=== PATIENT | male | born 1940 | race Caucasian/White ===

== ENCOUNTER 2016-10-02 19:56 | Emergency (ER) | payer OTHER, MEDICARE ==
[~2016-10-02] VITALS: Ht 175.3 cm; Wt 90.7 kg
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
[2016-10-02] MEDS ORDERED: ATORVASTATIN CA10 M1 PO (20:15)
[2016-10-02] MEDS ORDERED: NEXIUM40 M1 PO (20:15)
[2016-10-02] MEDS ORDERED: TAMSULOSIN HCL0.4 M1 PO (20:16)
[2016-10-02] MEDS ORDERED: ASPIRIN EC81 M1 PO (20:16)
[2016-10-02] MEDS ORDERED: VOLTAREN100 GM TOP (20:18)
--- NOTE | 2016-10-02 20:34 | RADIOLOGY REPORT ---
EXAMINATION: PORTABLE CHEST 1 VIEW CLINICAL INFORMATION: FALL, HEAD INJURY, +loc. COMPARISON: No recent pertinent prior studies are available for comparison. TECHNIQUE: Portable frontal view of the chest was obtained. FINDINGS: The lungs are well expanded. No focal infiltrate, effusion, edema, or pneumothorax. Cardiac and mediastinal silhouettes are within normal limits for size. Hiatal hernia is noted. Mild degenerative changes in the right shoulder and spine. No acute bony abnormality seen. IMPRESSION: Moderate-sized hiatal hernia. No acute airspace disease.
[2016-10-02 20:52] LABS: ABSOLUTE BASOPHIL COUNT 0 /CUMM (0.0-0.2); ABSOLUTE EOSINOPHIL COUNT 0.1 /CUMM (0.0-0.7); ABSOLUTE GRANULOCYTE CT 9.1 /CUMM (1.4-6.5); ABSOLUTE LYMPH COUNT 0.9 /CUMM (1.2-3.4); ABSOLUTE MONOCYTE COUNT 0.5 /CUMM (0.10-0.60); BASOPHIL % 0.1 % (0.0-2.0); HEMATOCRIT 42.5 % (42-52); MEAN CORPUSCULAR HGB 29.5 PG (27.0-31.0); MEAN CORPUSCULAR VOLUME 89.2 FL (80.0-94.0); MEAN PLATELET VOLUME 8.6 FL (7.4-10.4); PLATELET COUNT 198 /CUMM (130-400); RBC DISTRIBUTION WIDTH 14.5 % (11.5-14.5); RED BLOOD CELL CT 4.76 /CUMM (4.70-6.10); WHITE BLOOD CELL COUNT 10.6 /CUMM (4.8-10.8)
[2016-10-02 21:01] LABS: GRANULOCYTE % 86.4 % (42.2-75.2)
[2016-10-02 21:07] LABS: PT 11.4 SEC (9.4-12.5); PTT 30 SEC (25-37)
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
[2016-10-02 23:34] VITALS: BP 160/91
== END 2016-10-02 23:46 ==
LOC: ERH 19:56
PROVIDERS: Pediatrics
DX: S06.0X9A Concussion with loss of consciousness of unspecified duration, initial encounter (principal); S00.03XA Contusion of scalp, initial encounter; S01.01XA Laceration without foreign body of scalp, initial encounter; Y09 Assault by unspecified means; R41.0 Disorientation, unspecified; Z79.82 Long term (current) use of aspirin
CPT/HCPCS: 90471; 90714; 93005; 93010; G0480

== ENCOUNTER 2016-10-10 11:08 | Emergency (ER) | payer OTHER, MEDICARE ==
[~2016-10-10] VITALS: Ht 175.3 cm; Wt 93.0 kg
[~2016-10-10 11:08] MED LIST: ASPIRIN EC81 M1 PO; ATORVASTATIN CA10 M1 PO; NEXIUM40 M1 PO; TAMSULOSIN HCL0.4 M1 PO; VOLTAREN100 GM TOP
[2016-10-10 11:16] VITALS: BP 150/65
--- NOTE | 2016-10-10 11:43 | ED ANIMAL BITE/WOUND CHECK ---
History of Present Illness General Chief Complaint: Suture Removal/Wound Recheck Stated Complaint: STAPLE REMOVAL Source: patient Exam Limitations: no limitations Vital Signs & Intake/Output Vital Signs & Intake/Output Vital Signs Date Time Temp Pulse Resp B/P Pulse O2 O2 Flow FiO2 Ox Delivery Rate 10/10 1116 97.3 99 20 150/65 96 Room Air Allergies Coded Allergies: Opioids - Morphine Analogues (FEELS LIKE BUGS CRAWLING ALL OVER 10/02/16) Opioids-Meperidine and Related (FEELS LIKE BUGS CRAWLING ALL OVER 10/02/16) Opioids-Methadone and Related (FEELS LIKE BUGS CRAWLING ALL OVER SKIN 10/02/16) Reconcile Medications Aspirin (Ecotrin*) 81 MG TABLET.DR 1 TAB PO DAILY BLOOD THINNER (Reported) Atorvastatin Calcium 10 MG TABLET 1 TAB PO DAILY CHOLESTEROL (Reported) Diclofenac Sodium (Voltaren) 1 % GEL..GRAM. 1 GM TOP PRN SHOULDERS AND ELBOWS (Reported) apply to affected area(s) Esomeprazole (Nexium) 40 MG CAPSULE.DR 1 CAP PO DAILY GI (Reported) Tamsulosin HCl 0.4 MG CAP.ER.24H 1 CAP PO DAILY PROSTATE (Reported) Triage Note: PT TO ED FOR STAPLE REMOVAL TO TOP OF HEAD. 4 KAREEM PLACED LAST MONDAY. NO S/S INFECTION. DENIES PAIN. Triage Nurses Notes Reviewed? yes Onset: Abrupt Duration: day(s):, constant Timing: recent history Injury Environment: home HPI: 76-year-old male comes into emergency room for staple removal. No redness. No swelling. No discharge. No pain. Denies any other associated symptoms. (LALO GUZMAN) Past History Travel History Traveled to [place] past 21 day No Medical History Any Pertinent Medical History? see below for history Cardiovascular: hyperlipidemia Gastrointestinal: GERD Tetanus Vaccine: 10/02/16 Surgical History Surgical History: non-contributory Psychosocial History What is your primary language Greek Tobacco Use: Never used ETOH Use: denies use Illicit Drug Use: denies illicit drug use Family History Hx Contributory? No (LALO GUZMAN) Review of Systems Review of Systems Constitutional: Reports: no symptoms. EENTM: Reports: no symptoms. Respiratory: Reports: no symptoms. Cardiovascular: Reports: no symptoms. GI: Reports: no symptoms. Genitourinary: Reports: no symptoms. Musculoskeletal: Reports: no symptoms. Skin: Reports: see HPI. Neurological/Psychological: Reports: no symptoms. Hematologic/Endocrine: Reports: no symptoms. Immunologic/Allergic: Reports: no symptoms. All Other Systems: Reviewed and Negative (LALO GUZMAN) Physical Exam Physical Exam General Appearance: well developed/nourished Head: 4 kareem, no redness, no discharge Eyes: Bilateral: normal appearance. Ears, Nose, Throat: normal ENT inspection, hearing grossly normal Neck: normal inspection Respiratory: no respiratory distress Back: normal inspection Extremities: normal range of motion Neurologic/Psych: awake, alert, oriented x 3, normal mood/affect Skin: intact, normal color, warm/dry Lymphatic: no anterior cervical talib (LALO GUZMAN) Progress Differential Diagnosis: abscess, cellulitis, joint infection, tenosysnovitis Plan of Care: 10/10/2016 12:09:47 PM All kareem removed. Patient clinically looks well. (LALO GUZMAN) Departure Departure Disposition: HOME OR SELF CARE Condition: Stable Clinical Impression Primary Impression: Removal of staple Referrals: CRISTIAN HOLLEY,JAYY Stinson (PCP/Family) Additional Instructions: RETURN IF ANY OTHER CONCERNS/WORSENING OF SYMPTOMS. Departure Forms: Customer Survey General Discharge Information (LALO GUZMAN) PA/[employer]ER Co-Sign Statement Statement: ED Attending supervision documentation- [X] I saw and evaluated the patient. I have also reviewed all the pertinent lab results and diagnostic results. I agree with the findings and the plan of care as documented in the PA's/BU[employer] P[employer]CHER's documentation. [X] I have reviewed the ED Record and agree with the PA's/[employer]'s documentation. [] Additions or exceptions (if any) to the PAs/BU[employer]LE [employer] P[employer]CHER's note and plan are summarized below: [] (EDWIN HOLLEY,ROBSON)
== END 2016-10-10 11:46 ==
LOC: ERH 11:08
DX: S01.01XD Laceration without foreign body of scalp, subsequent encounter (principal)
CPT/HCPCS: 99281